=== PATIENT | male | born 1960 | race Caucasian/White ===

== ENCOUNTER 2022-07-22 10:32 | Day surgery (SDC) | payer OTHER ==
[~2022-07-22 10:32] MED LIST: ACETAMINOPHEN TAB 500 MG TAB PO PRN; DEXAMETHASONE SOD PHOSPHATE 10 MG/ML 1 ML VIAL IV PRN; DOCUSATE 100 MG CAP PO PRN; FAMOTIDINE 20 MG/2 ML VIAL IVP PRN; KETOROLAC 15 MG/ML 1 ML VIAL IVP PRN; ONDANSETRON 4 MG/2 ML VIAL IVP PRN; TRANEXAMIC ACID IN NACL,ISO-OS 1,000 MG in SALINE 1 100ML.BAG IV PRN; TRANEXAMIC ACID IN NACL,ISO-OS 1,000 MG in SALINE 1 100ML.BAG IVPB PRN; VANCOMYCIN 1,000 MG in SODIUM CHLORIDE 0.9% 250 ML IVPB PRN; oxyCODONE ER 10 MG TAB.ER.12H PO PRN
[2022-07-22] MEDS ORDERED: LIDOCAINE 1% (10MG/ML) FOR IV START INTRADERMA PRN (10:49)
[2022-07-22] MEDS ORDERED: HYDROmorphone 0.5 MG/0.5 ML SYRINGE IVP PRN ×2 (10:49→18:24)
[2022-07-22] MEDS: LACTATED RINGERS 1,000 ML IV SCH ×2 (11:02→16:08)
[2022-07-22] MEDS ORDERED: MIDAZOLAM 2 MG/2 ML VIAL IVP ONE (12:05)
[2022-07-22] MEDS ORDERED: GLYCOPYRROLATE 0.2 MG/ML 2 ML VIAL ONE (12:38)
[2022-07-22] MEDS ORDERED: SUCCINYLCHOLINE CHLORIDE 200 MG/10 ML VIAL IV ONE (12:38)
[2022-07-22] MEDS ORDERED: TRANEXAMIC ACID IN NACL,ISO-OS 1,000 MG/100 ML BAG ONE (12:38)
[2022-07-22] MEDS ORDERED: ROPIVACAINE 5 MG/ML 30 ML VIAL ONE (12:38)
[2022-07-22] MEDS ORDERED: NEOSTIGMINE 1 MG/ML 10 ML VIAL ONE (12:38)
[2022-07-22] MEDS ORDERED: fentaNYL (PF) 50 MCG/ML 2 ML AMP ONE (12:38)
[2022-07-22] MEDS ORDERED: DEXAMETHASONE SOD PHOSPHATE 4 MG/ML 1 ML VIAL ONE (12:38)
[2022-07-22] MEDS ORDERED: ROCURONIUM 10 MG/ML (5 ML VIAL) IV ONE (12:38)
[2022-07-22] MEDS ORDERED: ePHEDrine 50 MG/ML 1 ML VIAL ONE (12:38)
[2022-07-22] MEDS ORDERED: LIDOCAINE 2% INJ 20 MG/ML (2 ML VIAL) ONE (12:38)
[2022-07-22] MEDS ORDERED: PROPOFOL 10 MG/ML 20 ML VIAL IV ONE (12:38)
[2022-07-22] MEDS ORDERED: MIDAZOLAM 2 MG/2 ML VIAL ONE (12:38)
--- NOTE | 2022-07-22 13:01 | P.ANPRN ---
Procedure Note - Anesthesia - Nerve Block Performed Right Adductor Canal Single Time Out Performed: Yes Date of Procedure: 07/22/22 Procedure Start Time: 12:05 Procedure Stop Time: 12:12 Location of Patient: PreOp Indication: Acute Post-Operative Pain, Requested by Surgeon Sedation Type: Sedate with meaningful contact maintained Preparation: Sterile Prep, Sterile Dressing Position: Supine Catheter: None Needle Types: Facet Needle Gauge: 20 Ultrasound used to visualize needle placement: Yes Ultrasound used to observe medication spread: Yes Injectate: 0.5% Ropivacaine (see comment for volume) (20 ml + decadron 2 mg) Blood Aspirated: No Pain Paresthesia on Injection Noted: No Resistance on Injection: Normal Image Stored and Saved: Yes Events: Uneventful and Well Tolerated Right iPack Single Time Out Performed: Yes Date of Procedure: 07/22/22 Procedure Start Time: 12:13 Procedure Stop Time: 12:20 Location of Patient: PreOp Indication: Acute Post-Operative Pain, Requested by Surgeon Sedation Type: Sedate with meaningful contact maintained Preparation: Sterile Prep, Sterile Dressing Position: Left Lateral Catheter: None Needle Types: Facet Needle Gauge: 20 Ultrasound used to visualize needle placement: Yes Ultrasound used to observe medication spread: Yes Injectate: 0.5% Ropivacaine (see comment for volume) (10 ml + decadron 2 mg) Blood Aspirated: No Pain Paresthesia on Injection Noted: No Resistance on Injection: Normal Image Stored and Saved: Yes Events: Uneventful and Well Tolerated
[2022-07-22] MEDS: ROPIVACAINE/EPI/CLONIDINE/KET 50 ML SYRINGE MISCELLANE PRN ×2 (13:15→13:46)
[2022-07-22] MEDS ORDERED: LACTATED RINGERS 1,000 ML IV ONE (13:20)
--- NOTE | 2022-07-22 15:10 | P.OP ---
Date of Procedure: 07/22/22 Preoperative Diagnosis: Severe right knee osteoarthritis Postoperative Diagnosis: Same Procedure(s) Performed: Right total knee arthroplasty Implants: 1. [place] Tri[employer] CR Femur Size #5 2. [place] Triathlon [place] Tibial Base Size #5 3. Ross Triathlon CS poly Size #9 4. [place] Triathlon all poly patella, Size #35 Anesthesia: ROSALBA, regional Surgeon: Rc Cheatham Supervisor Contact Lens #1: Wendy Quezada Estimated Blood Loss (ml): 100 IV fluids (ml): 1,200 Pathology: none sent Condition: stable Disposition: PACU Indications for Procedure: I met with the patient preoperatively in the office setting and discussed treatment of their symptomatic knee arthritis. They failed a long course of nonsurgical treatment and elected to proceed with an elective total knee replacement. I discussed the potential risks and complications at length and gave them ample time to ask questions. Risks discussed included: risks from anesthesia, superficial site surgical infection, acute and/or chronic peripros thetic joint infection, delayed wound healing, drainage, wound necrosis, instability, stiffness, stiffness requiring manipulation and/or revision surgery, damage to local blood vessels or nerves, aseptic loosening of the implants, extensor mechanism issues including disruption, patellar maltracking, avascular necrosis etc., continued or worsened knee pain, generalized dissatisfaction with surgical outcome, need for revision surgery, an inability to regain preinjury level of function, DVT, PE, other medical complications, and possibly loss of life or limb. The patient voiced their understanding that while these are the most common complications other less common complications are possible. They provided both their verbal and written consent to go forward with surgery. Operative Findings: Severe tricompartmental knee osteoarthritis with full-thickness cartilage loss throughout the knee. Description of Procedure: The patient was identified in preoperative holding and the correct operative extremity was verified and marked with a marker. I reviewed the consent form with the patient at length. All of their questions were answered. The patient was given a block by anesthesia. They were then brought back to the operating room. They were transferred onto the operating room table where a general anesthetic, preoperative antibiotics, and tranexamic acid were administered by anesthesia. A tourniquet was applied to the proximal aspect of the operative extremity. The contralateral extremity was padded under the heel and secured to the operating room table with a nonsterile blue towel and tape. The ipsilateral arm was carefully draped across the patient's chest and secured with a pillow and foam. A post was applied over the lateral aspect of the ipsilateral thigh and a bolster was placed under the ipsilateral foot. I verified that the operative extremity was stable and the knee was flexed to 90. The operative extremity was then placed in a leg ellis, nonsterile drapes were applied, and the extremity was prepped and draped sterilely in the standard sterile fashion. Prior to starting surgery timeout was performed identifying the correct patient, operative extremity, and procedure. The leg was then elevated, exsanguinated with an Esmarch bandage, and the tourniquet was inflated. An anterior midline incision was made sharply with a scalpel. Once I had dissected deep to the superficial fascial layer medial and lateral flaps were elevated. A medial parapatellar arthrotomy was created. Upon opening the knee joint there were diffuse arthritic changes in all 3 compartments. The anterior horn of the medial meniscus were sharply released and a medial release was performed around the posterior medial corner of the knee to facilitate retractor placement. The fat pad was excised with electrocautery. The patella was found to be severely arthritic and a provisional cut was made with a sagittal saw to facilitate mobilization of the extensor mechanism during the procedure. Remnants of the ACL and PCL were then excised from the notch. 4 mm pins were then placed within the incision in the medial distal femur and proximal tibia. Arrays were applied to the pins and I verified they were completely tightened. The knee was then registered with the [employer] robot and manipulations in implant position were made to balance the knee and opitmize implant position. Using the Milan robotic saw all cuts were made in accordance with our plan. After all bony fragments had been removed the cuts were verified with the planar probe. The tibia was then subluxed forward and sized. The knee was brought into flexion and a lamina revenue enforcement collection agent was placed to allow removal of the meniscal remnants both medially and laterally as well as posterior osteophytes. Local anesthetic was then infiltrated around the joint capsule. Trial implants were then placed within the knee. Range of motion and collateral ligament tension was then evaluated. Adjustments in implant size and position were then made accordingly. Once the knee was felt to be appropriately balanced the Milan pins were removed. The patella was then recut, sized, and punched. A trial patellar button was then placed. With the trial components in place, the patella tracked midline. The femur was then drilled and the trial component removed. The trial tibial component was then appropriately rotated, pinned, and prepared for the keel. All trial components were then removed from the knee. The knee was thoroughly irrigated with pulsatile lavage. Cement was prepared via vacuum mixing in a bowl on the back table. I then hand pressurized cement into the femur and tibia and placed the implants beginning with the tibial base tray and poly liner, femoral component, and finally the patellar button. All extruded cement was removed including from the pin sites. Once the cement had hardened the knee was evaluated one final time with the final polyethylene liner in place. The knee had full extension and flexion and felt stable to varus and valgus stress throughout the arc of motion. The tourniquet was released and with the tourniquet down the patella tracked midline. All bleeders were controlled with electrocautery. The knee was then soaked for 3 minutes with a dilute Betadine soak. The knee was thoroughly irrigated using 3 L of sterile saline and pulsatile lavage. A deep drain was placed. The extensor mechanism was then reapproximated using pop off Vicryl sutures followed by a running barbed suture. The knee was then closed in layers with a 0 strata fix for the deep fascial layer, 2-0 strata fix for the superficial subcutaneous layer and Monocryl and Steri-Strips for the skin. A sterile dressing and drain sponge were applied. I verified that all instrument, sponge, and sharp counts were correct. The patient was then transferred off the operating room table, extubated, and brought to recovery having tolerated the procedure well. Wendy Quezada NP was required as a skilled media assistant due to the complexity of the procedure for patient positioning, draping, retraction, placement of hardware, and closure of wound. PLAN: The patient can weight-bear as tolerated on the operative extremity. DVT prophylaxis with aspirin 81 mg twice a day based on preoperative risk stratification. Follow-up in the office in 2 weeks for wound check and x-rays of the knee including an AP and lateral.
[2022-07-22] MEDS ORDERED: NA PHOS,M-B/NA PHOS,DI-BA 133 ML ENEMA RECTAL PRN (15:11)
[2022-07-22] MEDS ORDERED: HYDROcodone/APAP 5-325MG 1 EACH TAB PO PRN ×2 (15:11)
[2022-07-22] MEDS ORDERED: MAGNESIUM HYDROXIDE 2,400 MG/10 ML CUP PO PRN (15:11)
[2022-07-22] MEDS ORDERED: NALOXONE 0.4 MG/ML 1 ML VIAL IV PRN (15:11)
[2022-07-22] MEDS ORDERED: ONDANSETRON 4 MG/2 ML VIAL IVP PRN (15:11)
[2022-07-22] MEDS ORDERED: HYDROcodone/APAP 7.5-325MG 1 EACH TAB PO PRN (15:21)
--- NOTE | 2022-07-22 15:52 | XR ---
EXAMINATION TYPE: XR knee limited RT DATE OF EXAM: 07/22/2022 CLINICAL HISTORY: Right knee pain and arthritis status post total knee replacement. TECHNIQUE: Portable AP and crosstable lateral views of the right knee are obtained immediately posto peratively. COMPARISON: CT right knee June 08, 2022 FINDINGS: Metallic hardware from total right knee arthroplasty is seen and appears satisfactory in a lignment and position. There is evidence of recent surgery with diffuse subcutaneous gas , soft tiss ue swelling, and percutaneous suprapatellar surgical drain noted. IMPRESSION: METALLIC HARDWARE FROM TOTAL RIGHT KNEE ARTHROPLASTY IS SATISFACTORY IN ALIGNMENT.
--- NOTE | 2022-07-22 18:54 | P.CONS ---
History of Present Illness - Reason for Consult Consult date: 07/22/22 Medical Management Requesting physician: Rc Cheatham - History of Present Illness History of Presenting Illness: Patient is a very pleasant 61-year-old male with a past medical history of hypertension, hyperlipidemia, GERD, and osteoarthritis. He is currently admitted under orthopedic surgery team status post elective right total knee arthroplasty completed by Dr. Cheatham due to severe right knee osteoarthritis. We have been consulted for medical management throughout patient's hospitalization. Patient seen and fully evaluated at bedside upon arrival to room 468. Patient currently tolerating clear liquid oral intake and denied having any postoperative nausea or vomiting. Patient reports feeling sleepy but otherwise denies having any complaints at this time. Patient's at bedside. Patient and patient's deny patient having any history of DVT or PE or personal history of problems with anesthesia. Movement and sensation of right lower extremity is intact. Patient reports total control of postoperative pain at this time and denies any other complaints including headache, lightheadedness, dizziness, chest pain, palpitations, or experiencing any numbness/tingling in his extremities. Review of systems: Pertinent positives and negatives as discussed in HPI, a complete review of systems was performed and all other systems are negative. Physical exam: Vital signs reviewed and stable. General: Nontoxic, no distress and appears stated age. Derm: Skin warm and dry, normal coloration for ethnicity. Head: Atraumatic, normocephalic and symmetric. Eyes: EOMs intact, no lid lag, and anicteric sclera Mouth: no lip lesions, mucus membranes moist Cardiovascular: regular rate and rhythm with normal S1S2, no murmur, positive posterior tibial pulses bilaterally, and cap refill < 2 seconds. Lungs: Respirations even, regular, and unlabored on room air. Lungs CTA bilaterally, no rhonchi, no rales, no wheezing, and no accessory muscle usage. Abdominal: soft, nontender to palpation, no guarding, no appreciable organomegaly Ext: Movement and sensation equal and intact . No gross muscle atrophy, no edema, no contractures. Postoperative dressing to right knee with ice pack in place . Neuro: Speech clear, face symmetrical and CN II-XII grossly intact with no noted focal neuro deficits Psych: Alert and oriented to person, place, time, and situation. Appropriate and pleasant affect. Assessment and Plan of Care: Status post right total knee arthroplasty Osteoarthritis -DVT prophylaxis, pain management, wound/dressing care, weightbearing, and PT/OT per primary admitting orthopedic surgery team. -We will follow up with postoperative CBC. Preoperative labs reviewed showing macrocytic hyperchromic anemia with hemoglobin of 12.9, hematocrit 37.1%, MCV 97.1, an MCH of 33.8. -DVT prophylaxis currently with aspirin 81 mg twice a day. Hypertension -Monitor vital signs and continue daily medication regimen with amlodipine 5 mg nightly, lisinopril/hydrochlorothiazide 20/25 mg twice daily, and metoprolol 50 mg twice daily. Hyperlipidemia -Advanced to heart healthy diet. -Continue daily medication regimen with atorvastatin 40 mg nightly. GERD -GI prophylaxis with Protonix 40 mg twice daily. Thank you for allowing us to participate in the care of this pleasant patient. Do not hesitate to contact us with questions. Someone can be reached from the [facility] hospitalist group all hours of the day at [phone] or via [employer]. Adolfo Sarah NP rendered care for this patient independently, reviewed the findings and plan as documented in the note above. I did not physically speak with or examine the patient on this date. Past Medical History Past Medical History: GERD/Reflux, Hyperlipidemia, Hypertension, Osteoarthritis (OA) Additional Past Medical History / Comment(s): narrowing of esophagus, ? sleep apnea no testing History of Any Multi-Drug Resistant Organisms: None Reported Additional Past Surgical History / Comment(s): EGD, colonoscopy Past Anesthesia/Blood Transfusion Reactions: Family History of Problems w/ Anesthesia Additional Past Anesthesia/Blood Transfusion Reaction / Comm: father nausea Smoking Status: Former smoker, Light tobacco smoker - Past Family History Father Family Medical History: Cancer Additional Family Medical History / Comment(s): pacemaker, prostate Mother Family Medical History: Cancer Additional Family Medical History / Comment(s): bladder cancer. pacemaker Medications and Allergies Home Medications Medication Instructions Recorded Confirmed Type Acetaminophen [Tylenol Extra 1,000 mg PO DIRECTED PRN 07/17/22 07/17/22 History Strength] Aspirin 81 mg PO DAILY 07/17/22 07/17/22 History HYDROcodone/APAP 5-325MG [[place] 1 tab PO Q6HR PRN 07/17/22 07/17/22 History 5-325] Ibuprofen 800 mg PO TID PRN 07/17/22 07/17/22 History LORazepam 1 mg PO HS 07/17/22 07/17/22 History LORazepam [Lorazepam] 0.5 mg PO DAILY 07/17/22 07/17/22 History Lisinopril-Hctz 20-25 mg 1 tab PO BID 07/17/22 07/17/22 History [Zestoretic 20-25] Metoprolol Tartrate [Lopressor] 50 mg PO BID 07/17/22 07/17/22 History Pantoprazole Sodium 40 mg PO BID 07/17/22 07/17/22 History Rosuvastatin Calcium 20 mg PO HS 07/17/22 07/17/22 History Unk Mg+ 1 tab PO DAILY 07/17/22 07/17/22 History Unk Vitamin B Complex 1 tab PO DAILY 07/17/22 07/17/22 History amLODIPine BESYLATE 5 mg PO HS 07/17/22 07/17/22 History buPROPion SR [Wellbutrin SR] 150 mg PO BID 07/17/22 07/17/22 History Aspirin 81 mg PO BID 30 Days #60 tab 07/23/22 Rx Diclofenac Sodium [Voltaren] 75 mg PO BID 30 Days #60 tab 07/23/22 Rx Docusate [Colace] 100 mg PO BID #60 capsule 07/23/22 Rx HYDROcodone/APAP 7.5-325MG [[place] 1 tab PO Q6HR PRN 7 Days #30 tab 07/23/22 Rx 7.5-325] Omeprazole 40 mg PO DAILY 30 Days #30 cap 07/23/22 Rx Tamsulosin [Flomax] 0.4 mg PO PC-BRKFST 30 Days #30 cap 07/23/22 Rx Allergies Allergy/AdvReac Type Severity Reaction Status Date / Time No Known Allergies Allergy Verified 07/22/22 11:02 Physical Exam Vitals: Vital Signs Temp Pulse Pulse Resp BP BP Pulse Ox 07/22/22 16:03 69 16 134/78 94 L 07/22/22 15:48 75 16 133/72 93 L 07/22/22 15:33 73 16 135/74 95 07/22/22 15:18 75 16 140/73 96 07/22/22 15:03 97.4 F L 84 16 144/78 95 07/22/22 12:19 55 L 16 137/72 97 07/22/22 11:09 98.7 F 58 L 16 143/73 97 Intake and Output 07/22/22 07/22/22 07/22/22 06:59 14:59 22:59 Intake Total 2200 100 Output Total 100 Balance 2100 100 Intake: IV 2200 100 Output: Estimated Blood Loss 100 Other: Weight 109.2 kg Results CBC & Chem 7: 07/23/22 05:26
[2022-07-22] MEDS: METOPROLOL TARTRATE 50 MG TAB PO SCH (19:48)
[2022-07-22] MEDS: PANTOPRAZOLE 40 MG TABLET PO SCH (19:48)
[2022-07-22] MEDS: ASPIRIN 81 MG PO SCH (19:49)
[2022-07-22] MEDS: HYDROcodone/APAP 7.5-325MG 1 EACH TAB PO PRN (19:50)
[2022-07-22] MEDS: buPROPion SR 150 MG TABLET.ER PO SCH (20:15)
[2022-07-22] MEDS: LISINOPRIL-HCTZ 20-25 MG 1 EACH TAB PO SCH (20:15)
[2022-07-22] MEDS ORDERED: amLODIPine 5 MG TAB PO SCH (21:00)
[2022-07-22] MEDS ORDERED: SENNOSIDES-DOCUSATE SODIUM 1 EACH TAB PO SCH (21:00)
[2022-07-22] MEDS ORDERED: ATORVASTATIN 40 MG TAB PO SCH (21:00)
[2022-07-22] MEDS: HYDROmorphone 1 MG/ML 1 ML SYRINGE IVP PRN (21:17)
[2022-07-23] MEDS: HYDROcodone/APAP 7.5-325MG 1 EACH TAB PO PRN ×2 (00:38→08:37)
[2022-07-23] MEDS: HYDROmorphone 1 MG/ML 1 ML SYRINGE IVP PRN (01:38)
[2022-07-23] MEDS: METOPROLOL TARTRATE 50 MG TAB PO SCH (08:37)
[2022-07-23] MEDS: PANTOPRAZOLE 40 MG TABLET PO SCH (08:37)
[2022-07-23] MEDS: ASPIRIN 81 MG PO SCH (08:37)
[2022-07-23] MEDS: buPROPion SR 150 MG TABLET.ER PO SCH (08:37)
[2022-07-23] MEDS: LISINOPRIL-HCTZ 20-25 MG 1 EACH TAB PO SCH (08:37)
[2022-07-23 08:42] LABS: Basophils # (A) 0.01 X 10*3/uL (0.00-0.10); Basophils % (A) 0.1 %; Eosinophils # (A) 0 X 10*3/uL (0.04-0.35); Eosinophils % (A) 0 %; HGB 12.1 g/dL (13.0-17.0); Immature Grans, Automated 0.4 %; Lymphocytes # (A) 0.63 X 10*3/uL (0.90-5.00); Lymphocytes % (A) 5.5 %; MCH 33.6 pg (27.0-32.0); MCHC 35.6 g/dL (32.0-37.0); MCV 94.4 fL (80.0-97.0); Mean Platelet Volume 9.4 fL (9.5-12.2); Monocytes # (A) 0.56 X 10*3/uL (0.20-1.00); Monocytes % (A) 4.9 %; NRBC Per 100 WBC 0 /100 WBCS (0.0-0.0); Neutrophils # (A) 10.15 X 10*3/uL (1.80-7.70); Neutrophils % (A) 89.1 %; Platelet Count 229 X 10*3/uL (140-440); RDW 12.4 % (11.5-14.5); WBC 11.39 X 10*3/uL (4.50-10.00)
--- NOTE | 2022-07-23 09:40 | P.DS ---
Providers Expected date of discharge: 07/23/22 Attending physician: Rc Cheatham Consults: 07/22/22 15:11 Consult Physician Routine Consulting Provider: Corbin Campbell Consult Reason/Comments: medical managmeent Do you want consulting provider notified?: Yes Primary care physician: Makeda Buckley [facility] Course: This is a 61-year-old male who has been followed in our office by Dr. Cheatham for continued complaints of right knee pain due to right knee osteoarthritis. Treatment options were discussed, and patient elected to undergo a right total knee arthroplasty. Patient was seen pre-operatively by Dr. Buckley and cleared for surgery. Patient underwent a right total knee arthroplasty on 07/22/[address] Cheatham. The procedure was performed without complication or sequelae. The patient is doing fairly well postoperatively. Vital signs and labs are stable on postoperative day #1. Patient was examined bedside this morning with Dr. Cheatham. Patient states he is overall doing very well and the pain in the right knee is well-controlled. He has been ambulating with a walker with minimal assistance. Patient will work with physical therapy prior to discharge. Patient is comfortable being discharged home today. Patient has no new complaints this morning. On examination, the patient is sitting up in bed in no apparent distress. He is alert and orientated 3. On inspection of the right knee, there is clean, dry, intact Opsite surgical dressing in place. Patient has good strength and ROM of the right ankle and toes. Motor and sensory function is intact of the right lower extremity. The dorsalis pedis pulse is easily palpable, the right lower extremity is warm and well perfused with brisk capillary refill. Calf is soft and non-tender to palpation. Hemovac drain was removed bedside during examination. Patient is discharged home with home health care today in good condition, pending medical clearance. Patient will follow-up with Dr. Cheatham in the offi ce in 2 weeks. Please see med rec for accurate list of discharge medication. Plan - Discharge Summary Discharge Rx Participant: No New Discharge Prescriptions: New HYDROcodone/APAP 7.5-325MG [[place] 7.5-325] 1 tab PO Q6HR PRN 7 Days #30 tab PRN Reason: Pain Omeprazole 40 mg PO DAILY 30 Days #30 cap Diclofenac Sodium [Voltaren] 75 mg PO BID 30 Days #60 tab Aspirin 81 mg PO BID 30 Days #60 tab Docusate [Colace] 100 mg PO BID #60 capsule No Action buPROPion SR [Wellbutrin SR] 150 mg PO BID amLODIPine BESYLATE 5 mg PO HS Rosuvastatin Calcium 20 mg PO HS Pantoprazole Sodium 40 mg PO BID Lisinopril-Hctz 20-25 mg [Zestoretic 20-25] 1 tab PO BID LORazepam [Lorazepam] 0.5 mg PO DAILY LORazepam 1 mg PO HS Aspirin 81 mg PO DAILY Unk Vitamin B Complex 1 tab PO DAILY Metoprolol Tartrate [Lopressor] 50 mg PO BID Ibuprofen 800 mg PO TID PRN PRN Reason: Pain HYDROcodone/APAP 5-325MG [[place] 5-325] 1 tab PO Q6HR PRN PRN Reason: Pain Acetaminophen [Tylenol Extra Strength] 1,000 mg PO DIRECTED PRN PRN Reason: Pain Unk Mg+ 1 tab PO DAILY Discharge Medication List Acetaminophen [Tylenol Extra Strength] 1,000 mg PO DIRECTED PRN 07/17/22 [History] Aspirin 81 mg PO DAILY 07/17/22 [History] HYDROcodone/APAP 5-325MG [[place] 5-325] 1 tab PO Q6HR PRN 07/17/22 [History] Ibuprofen 800 mg PO TID PRN 07/17/22 [History] LORazepam 1 mg PO HS 07/17/22 [History] LORazepam [Lorazepam] 0.5 mg PO DAILY 07/17/22 [History] Lisinopril-Hctz 20-25 mg [Zestoretic 20-25] 1 tab PO BID 07/17/22 [History] Metoprolol Tartrate [Lopressor] 50 mg PO BID 07/17/22 [History] Pantoprazole Sodium 40 mg PO BID 07/17/22 [History] Rosuvastatin Calcium 20 mg PO HS 07/17/22 [History] Unk Mg+ 1 tab PO DAILY 07/17/22 [History] Unk Vitamin B Complex 1 tab PO DAILY 07/17/22 [History] amLODIPine BESYLATE 5 mg PO HS 07/17/22 [History] buPROPion SR [Wellbutrin SR] 150 mg PO BID 07/17/22 [History] Aspirin 81 mg PO BID 30 Days #60 tab 07/23/22 [Rx] Diclofenac Sodium [Voltaren] 75 mg PO BID 30 Days #60 tab 07/23/22 [Rx] Docusate [Colace] 100 mg PO BID #60 capsule 07/23/22 [Rx] HYDROcodone/APAP 7.5-325MG [[place] 7.5-325] 1 tab PO Q6HR PRN 7 Days #30 tab 07/23/22 [Rx] Omeprazole 40 mg PO DAILY 30 Days #30 cap 07/23/22 [Rx] Follow up Appointment(s)/Referral(s): Makeda Buckley DO [Primary Care Provider] - 1 Week Rc Cheatham MD [Medical Doctor] - 08/03/22 8:05 am Activity/Diet/Wound Care/Special Instructions: Weight bear to tolerance on operative extremity with a walker. Keep operative dressing in place until follow-up in the office. Call the office if dressing becomes saturated or falls off. May shower over dressing. Take pain medications as needed. Take aspirin 81mg twice a day for blood clot prevention. Follow-up in the office at [facility] in two weeks. Call the office with any questions or concerns, Discharge Disposition: HOME WITH HOME HEALTH SERVICES
[2022-07-23] MEDS ORDERED: ACETAMINOPHEN TAB 325 MG TAB PO PRN (11:24)
[2022-07-23] MEDS: LACTATED RINGERS 1,000 ML IV SCH (11:24)
[2022-07-23] MEDS ORDERED: TAMSULOSIN 0.4 MG CAP.ER.24H PO SCH (13:30)
[2022-07-23 15:14] VITALS: BP 143/80; PULSE 69; RESP 18; TEMP 98.4
[2022-07-23] MEDS ORDERED: HYDROcodone/APAP 7.5-325MG 1 EACH TAB PO PRN (15:56)
--- NOTE | 2022-07-23 15:58 | P.PN ---
Subjective Progress Note Date: 07/23/22 Hospital course: Patient is a very pleasant 61-year-old male with a past medical history of hypertension, hyperlipidemia, GERD, and osteoarthritis. He is currently admitted under orthopedic surgery team status post elective right total knee arthroplasty completed by Dr. Cheatham due to severe right knee osteoarthritis. We have been consulted for medical management throughout patient's hospitalization. Physical exam: Patient seen and fully evaluated at bedside. Patient reports feeling well this morning and having a complete control of postoperative pain. Patient ambulated with PT/OT without any difficulties. Vital signs reviewed and stable. General: Nontoxic, no distress and appears stated age. Derm: Skin warm and dry, normal coloration for ethnicity. Head: Atraumatic, normocephalic and symmetric. Eyes: EOMs intact, no lid lag, and anicteric sclera Mouth: no lip lesions, mucus membranes moist Cardiovascular: regular rate and rhythm with normal S1S2, no murmur, positive posterior tibial pulses bilaterally, and cap refill < 2 seconds. Lungs: Respirations even, regular, and unlabored on room air. Lungs CTA bilaterally, no rhonchi, no rales, no wheezing, and no accessory muscle usage. Abdominal: soft, nontender to palpation, no guarding, no appreciable organomegaly Ext: Movement and sensation equal and intact . No gross muscle atrophy, no edema, no contractures. Postoperative dressing to right knee with ice pack in place . Neuro: Speech clear, face symmetrical and CN II-XII grossly intact with no noted focal neuro deficits Psych: Alert and oriented to person, place, time, and situation. Appropriate and pleasant affect. Assessment and Plan of Care: RN reports patient with postoperative urinary retention greater than 300 mL 2 events. Patient being started on Flomax at this time. Morning labs reviewed. CBC revealing mild ketoacidosis with WBC count of 11.39 and normocytic anemia with hemoglobin of 12.1. If patient has no further episodes of urinary retention greater than 300 mL post void residual. Urinary retention -Continue bladder management and started patient on Flomax 0.4 mg daily. Status post right total knee arthroplasty Osteoarthritis -DVT prophylaxis, pain management, wound/dressing care, weightbearing, and PT/OT per primary admitting orthopedic surgery team. -DVT prophylaxis currently with aspirin 81 mg twice a day. Hypertension -Monitor vital signs and continue daily medication regimen with amlodipine 5 mg nightly, lisinopril/hydrochlorothiazide 20/25 mg twice daily, and metoprolol 50 mg twice daily. Hyperlipidemia -Advanced to heart healthy diet. -Continue daily medication regimen with atorvastatin 40 mg nightly. GERD -GI prophylaxis with Protonix 40 mg twice daily. Thank you for allowing us to participate in the care of this pleasant patient. Do not hesitate to contact us with questions. Someone can be reached from the [facility] hospitalist group all hours of the day at [phone] or via [employer]. Adolfo Sarah NP rendered care for this patient independently, reviewed the findings and plan as documented in the note above. I did not physically speak with or examine the patient on this date. Objective - Vital Signs Vital signs: Vital Signs Temp 98.5 F 07/23/22 06:56 Pulse 79 07/23/22 06:56 Resp 19 07/23/22 06:56 BP 149/83 07/23/22 06:56 Pulse Ox 95 07/23/22 12:56 FiO2 Intake & Output 07/22/22 07/23/22 07/23/22 18:59 06:59 18:59 Intake Total 2300 118 Output Total 100 1660 975 Balance 2200 -1660 -857 Weight 109.2 kg Intake: IV 2300 Oral 118 Output: Drainage 260 100 Right Knee 260 100 Urine 1400 875 Straight 700 600 Estimated Blood Loss 100 Other: # Voids 3 - Labs CBC & Chem 7: 07/23/22 05:26 Labs: Abnormal Lab Results - Last 24 Hours (Table) 07/23/22 Range/Units 05:26 WBC 11.39 H (4.50-10.00) X 10*3/uL RBC 3.60 L (4.40-5.60) X 10*6/uL Hgb 12.1 L (13.0-17.0) g/dL Hct 34.0 L (39.6-50.0) % MCH 33.6 H (27.0-32.0) pg MPV 9.4 L (9.5-12.2) fL Neutrophils # 10.15 H (1.80-7.70) X 10*3/uL Lymphocytes # 0.63 L (0.90-5.00) X 10*3/uL Eosinophils # 0 L (0.04-0.35) X 10*3/uL
== END 2022-07-23 16:46 | disposition home health service (06) ==
LOC: OR 10:32 → 4SSUR 15:05 → OR 07-23 16:46
PROVIDERS: ATTEND Orthopaedic Surgery
DX: M17.11 Unilateral primary osteoarthritis, right knee (principal); G89.18 Other acute postprocedural pain; E78.5 Hyperlipidemia, unspecified; E87.29 Other acidosis; I10 Essential (primary) hypertension; G47.30 Sleep apnea, unspecified; Z79.1 Long term (current) use of non-steroidal anti-inflammatories (NSAID); Z79.82 Long term (current) use of aspirin; Z79.899 Other long term (current) drug therapy; Z87.891 Personal history of nicotine dependence
CPT/HCPCS: 94760; 97161; 64447; 64999; 76942; 85025; 73560; 27447; C1776; J2250; J3370; J1100; S0106 ×2; J0690; J2405; J1170 ×2; J1885